=== PATIENT | female | born 1995 | race Caucasian/White ===

== ENCOUNTER 2017-01-29 11:07 | Emergency (ER) | payer OTHER ==
[2017-01-29 12:47] LABS: COLOR PALE YELLOW; LEUKOCYTE ESTERASE,URINE NEGATIVE (NEGATIVE); NITRITE,URINE NEGATIVE (NEGATIVE)
[2017-01-29 13:10] LABS: ALANINE AMINOTRANSFERASE 24 IU/L (9-52); ALBUMIN 4.6 g/dL (3.5-5.0); ALKALINE PHOSPHATASE 60 IU/L (38-126); ANION GAP 12 mEq/L (8-16); ASPARTATE AMINOTRANSFERASE 18 IU/L (14-46); BILIRUBIN,TOTAL 0.4 mg/dL (0.1-1.4); CALCIUM 10.3 mg/dL (8.5-10.4); CARBON DIOXIDE 21 mEq/l (22-31); CHLORIDE 110 mEq/L (97-110); CREATININE 0.7 mg/dL (0.6-1.0); GLOMERULAR FILTRATION RATE > 60; GLUCOSE 94 mg/dL (70-100); POTASSIUM 4.4 mEq/L (3.5-5.2); SODIUM 143 mEq/L (134-144); TOTAL PROTEIN 7.4 g/dL (6.3-8.2)
--- NOTE | 2017-01-29 13:14 | EDPHY ---
H & P Time Seen by Provider: 01/29/17 12:54 HPI/ROS: Chief complaint. Abdominal pain HPI. 21-year-old female 5 day history right lower quadrant abdominal pain. It began with nausea and chills. Then she developed right lower quadrant discomfort. It is sharp and worse with movement. Some radiation to her back. She has a history of ovarian cyst and has had a left oophorectomy because of ovarian cyst. She does not think that she has been running a fever though she has slight temperature here. No diarrhea. She did have some vomiting initially. She has had some constipation. She also notes urinary frequency. No chest discomfort or trouble breathing. ROS Constitutional. no fever/chills, no weakness Eyes. no problems with vision ENT. no sore throat, no nasal drainage Cardiovascular. no chest pain Respiratory. no shortness of breath, no cough Abdominal. Right lower quadrant abdominal pain with nausea and vomiting . Urinary frequency MS. no calf pain/swelling, no neck/back pain, no joint pain Skin. no rash Lymph. no swollen glands Neuro. no headache, no dizziness, no difficulty walking or with speech Past Medical/Surgical History: Past medical history significant for left oophorectomy, bipolar illness, attention deficit hyperactivity disorder, eating disorder, ovarian cysts Social History: Single, nonsmoker, no alcohol Smoking Status: Never smoked Physical Exam: General Appearance: Alert pleasant well-developed female mild distress vital signs show temp 37.3degrees with heart rate 101 an initial blood pressure 148/ 102 Eyes: Pupils equal and round no pallor or injection. ENT, Mouth: Mucous membranes are moist. Respiratory: There are no retractions, lungs are clear to auscultation. Cardiovascular: Regular rate and rhythm. Gastrointestinal: Abdomen is soft with tenderness in the right lower quadrant both the McBurney's point and in the right adnexal area. No masses. No organomegaly. Normal bowel sounds Neurological: Awake and alert, sensory and motor exams grossly normal. Skin: Warm and dry, no rashes. Musculoskeletal: Neck is supple nontender. Extremities symmetrical, full range of motion. Psychiatric: Patient is oriented X 3, there is no agitation. Constitutional: Initial Vital Signs Temperature (C) 37.3 C 01/29/17 11:15 Heart Rate 101 H 01/29/17 11:15 Respiratory Rate 20 01/29/17 11:15 Blood Pressure 148/102 H 01/29/17 11:15 O2 Sat (%) 98 01/29/17 11:15 O2 Delivery Mode Room Air Allergies/Adverse Reactions: simethicone [From Gas-X] Allergy (Intermediate, Verified 10/23/13 14:52) Hives Home Medications: Medication Instructions Recorded Escitalopram Oxalate [Lexapro 10 10 mg PO 10/03/12 MG (RX)] Fluticasone Hfa 220 Mcg [Flovent 1 puffs IH BID #1 mdi 10/03/12 220 MCG Hfa MDI (*)] [place] Aspartate [Lithate] 5 mg PO 10/03/12 Lurasidone HCl [Latuda 40MG (RX)] 40 mg PO DAILY@0800 10/03/12 Promethazine HCl [Phenergan 25mg 25 mg PO Q4-6PRN PRN #7 tab 01/29/17 (*)] Medical Decision Making - Diagnostics Imaging Results: Imaging Impressions Abdomen Ultrasound 01/29/17 13:28 Impression: 1. Normal-appearing uterus. 2. Follicle seen associated with normal-appearing right ovary with normal color- flow Doppler pattern. 3. The point of tenderness appeared to correspond with the right ovary during right lower quadrant ultrasound evaluation. 4. The appendix was not positively identified. Findings discussed with Jeremie Hartman M.D. at 15:59 hour, 01/29/2017. Pelvic/Renal Ultrasound 01/29/17 13:28 Impression: 1. Normal-appearing uterus. 2. Follicle seen associated with normal-appearing right ovary with normal color- flow Doppler pattern. 3. The point of tenderness appeared to correspond with the right ovary during right lower quadrant ultrasound evaluation. 4. The appendix was not positively identified. Findings discussed with Jeremie Hartman M.D. at 15:59 hour, 01/29/2017. Abdomen CT 01/29/17 16:04 Impression: 1. Mild prominence of the right ovary, as seen on ultrasound the same day, suboptimally assessed by CT. 2. Mild constipation. 3. Borderline hepatosplenomegaly. 4. Additional findings, as above. Findings discussed with Jeremie Hartman M.D., on January 29, 2017 at 1804. E:NW/amm Ultrasound reviewed by me and discussed with Dr. Rodriguez shows a normal up. Uterus. No obvious evidence for ovarian cyst or ovarian torsion. Unable to see a PACs CT abdomen and pelvis with IV contrast reviewed by me and discussed with Dr. King shows a normal appendix and constipation Procedures: IV normal saline. Fentanyl for pain. Zofran for ED Course/Re-evaluation: Re-evaluation 5:00 p.m.. The patient, mother, and I discussed imaging and lab results. We discussed treatment plan and that we could not see the appendix. I have recommended CT scan and they agree Patient has some nausea she will be given IV Phenergan I consulted and discussed case with Dr. Amber Marcum, gynecology who sees the patient in the emergency department. She feels that this is not ovarian torsion and the patient is safe for discharge The patient, her mom, and I discussed imaging and lab results. We discussed treatment plan including criteria for return importance of follow-up and further evaluation. They expressed understanding and agreement Differential Diagnosis: I considered urinary tract infection, ovarian cyst, ovarian torsion, appendicitis. Findings are consistent with constipation - Data Points Laboratory Results: Laboratory Results 01/29/17 12:48 01/29/17 12:48 01/29/17 01/29/17 01/29/17 13:15 12:48 12:48 WBC RBC Hgb Hct MCV MCH MCHC RDW Plt Count MPV Neut % (Auto) Lymph % (Auto) [place] % (Auto) Eos % (Auto) Baso % (Auto) Nucleat RBC Rel Count Absolute Neuts (auto) Absolute Lymphs (auto) Absolute Monos (auto) Absolute Eos (auto) Absolute Basos (auto) Absolute Nucleated RBC Immature Gran % Immature Gran # Sodium 143 mEq/L mEq/L (134-144) Potassium 4.4 mEq/L mEq/L (3.5-5.2) Chloride 110 mEq/L mEq/L (97-110) Carbon Dioxide 21 mEq/l L mEq/l (22-31) Anion Gap 12 mEq/L mEq/L (8-16) BUN 6 mg/dL L mg/dL (7-23) Creatinine 0.7 mg/dL mg/dL (0.6-1.0) Estimated GFR > 60 Glucose 94 mg/dL mg/dL (70-100) Calcium 10.3 mg/dL mg/dL (8.5-10.4) Total Bilirubin 0.4 mg/dL mg/dL (0.1-1.4) AST 18 IU/L IU/L (14-46) ALT 24 IU/L IU/L (9-52) Alkaline Phosphatase 60 IU/L IU/L (38-126) Total Protein 7.4 g/dL g/dL (6.3-8.2) Albumin 4.6 g/dL g/dL (3.5-5.0) Beta HCG, Qual NEGATIVE Urine Color Urine Appearance Urine pH Ur Specific [place] Urine Protein Urine Ketones Urine Blood Urine Nitrate Urine Bilirubin Urine Urobilinogen Ur Leukocyte Esterase Urine Glucose [place] 0.6 mEq/L mEq/L (0.6-1.2) 01/29/17 01/29/17 12:48 12:29 WBC 12.03 10^3/uL H 10^3/uL (3.80-9.50) RBC 4.98 10^6/uL 10^6/uL (4.18-5.33) Hgb 12.3 g/dL L g/dL (12.6-16.3) Hct 40.9 % % (38.0-47.0) MCV 82.1 fL fL (81.5-99.8) MCH 24.7 pg L pg (27.9-34.1) MCHC 30.1 g/dL L g/dL (32.4-36.7) RDW 14.5 % % (11.5-15.2) Plt Count 413 10^3/uL H 10^3/uL (150-400) MPV 10.3 fL fL (8.7-11.7) Neut % (Auto) 53.7 % % (39.3-74.2) Lymph % (Auto) 32.7 % % (15.0-45.0) [place] % (Auto) 3.8 % L % (4.5-13.0) Eos % (Auto) 8.7 % H % (0.6-7.6) Baso % (Auto) 0.7 % % (0.3-1.7) Nucleat RBC Rel Count 0.0 % % (0.0-0.2) Absolute Neuts (auto) 6.46 10^3/uL 10^3/uL (1.70-6.50) Absolute Lymphs (auto) 3.93 10^3/uL H 10^3/uL (1.00-3.00) Absolute Monos (auto) 0.46 10^3/uL 10^3/uL (0.30-0.80) Absolute Eos (auto) 1.05 10^3/uL H 10^3/uL (0.03-0.40) Absolute Basos (auto) 0.08 10^3/uL 10^3/uL (0.02-0.10) Absolute Nucleated RBC 0.00 10^3/uL 10^3/uL (0-0.01) Immature Gran % 0.4 % % (0.0-1.1) Immature Gran # 0.05 10^3/uL 10^3/uL (0.00-0.10) Sodium Potassium Chloride Carbon Dioxide Anion Gap BUN Creatinine Estimated GFR Glucose Calcium Total Bilirubin AST ALT Alkaline Phosphatase Total Protein Albumin Beta HCG, Qual Urine Color PALE YELLOW Urine Appearance CLEAR Urine pH 6.0 (5.0-7.5) Ur Specific [place] 1.004 (1.002-1.030) Urine Protein NEGATIVE (NEGATIVE) Urine Ketones NEGATIVE (NEGATIVE) Urine Blood NEGATIVE (NEGATIVE) Urine Nitrate NEGATIVE (NEGATIVE) Urine Bilirubin NEGATIVE (NEGATIVE) Urine Urobilinogen NEGATIVE EU EU (0.2-1.0) Ur Leukocyte Esterase NEGATIVE (NEGATIVE) Urine Glucose NEGATIVE (NEGATIVE) [place] Medications Given: Discontinued Medications Fentanyl (Sublimaze) 100 mcg IVP EDNOW ONE Stop: 01/29/17 13:29 Last Admin: 01/29/17 13:36 Dose: 100 mcg Fentanyl (Sublimaze) 100 mcg IVP EDNOW ONE Stop: 01/29/17 15:03 Last Admin: 01/29/17 15:08 Dose: 100 mcg Sodium Chloride (Ns) 1,000 mls @ 0 mls/hr IV EDNOW ONE; [place] PRN Reason: Protocol Stop: 01/29/17 13:29 Last Admin: 01/29/17 13:38 Dose: 1,000 mls Ondansetron HCl (Zofran) 4 mg IVP EDNOW ONE Stop: 01/29/17 13:29 Last Admin: 01/29/17 13:37 Dose: 4 mg Promethazine HCl (Phenergan) 12.5 mg IVP EDNOW ONE Stop: 01/29/17 16:11 Last Admin: 01/29/17 16:15 Dose: 12.5 mg Departure - Departure Disposition: Home, Routine, Self-Care Clinical Impression: Abdominal pain Qualifiers: Abdominal location: right lower quadrant Qualified Code(s): R10.31 - Right lower quadrant pain Condition: Good Instructions: Constipation (ED) Additional Instructions: Increased fluids including fruit juice and prune juice. Milk of magnesia, magnesium citrate, darryl Colace as laxatives from grocery store for constipation. Tylenol as needed for discomfort. Return for worsening pain, fever, vomiting. Recheck in 1-2 days if not improving Referrals: Amber Marcum DO [Doctor of Osteopathy] - As per Instructions Aggie Morel PA [Primary Care Provider] - 1 day, if not improved Prescriptions: Promethazine HCl [Phenergan 25mg (*)] 25 mg PO Q4-6PRN PRN #7 tab PRN Reason: Nausea/Vomiting, Use 1st
[2017-01-29 13:23] LABS: % IMMATURE GRANULYOCYTES 0.4 % (0.0-1.1); ABSOLUTE IMMATURE GRANULOCYTES 0.05 10^3/uL (0.00-0.10); ADD DIFF? NO; ADD MORPH? NO; ADD SCAN? NO; ATYPICAL LYMPHOCYTE FLAG 0 (0-99); FRAGMENT RBC FLAG 0 (0-99); HEMATOCRIT 40.9 % (38.0-47.0); HEMOGLOBIN 12.3 g/dL (12.6-16.3); LEFT SHIFT FLG 0 (0-99); LIPEMIA HEMOLYSIS FLAG 80 (0-99); MEAN CELL HEMOGLOBIN 24.7 pg (27.9-34.1); MEAN CELL HEMOGLOBIN CONCENTR. 30.1 g/dL (32.4-36.7); MEAN CELL VOLUME 82.1 fL (81.5-99.8); MEAN PLATELET VOLUME 10.3 fL (8.7-11.7); PLATELET CLUMPS FLAG 10 (0-99); PLATELET COUNT 413 10^3/uL (150-400); RED BLOOD CELL COUNT 4.98 10^6/uL (4.18-5.33); RED CELL DISTRIBUTION WIDTH 14.5 % (11.5-15.2)
[2017-01-29] MEDS ORDERED: NS 1,000 ML IV ONE (13:28)
[2017-01-29] MEDS ORDERED: ONDANSETRON 4 MG/2 ML VIAL IVP ONE (13:28)
[2017-01-29] MEDS ORDERED: fentaNYL 100 MCG/2 ML INJ IVP ONE ×2 (13:28→15:02)
[2017-01-29 13:43] VITALS: RESP 18
[2017-01-29 15:03] LABS: LITHIUM 0.6 mEq/L (0.6-1.2)
[2017-01-29] MEDS ORDERED: PROMETHAZINE HCL 25 MG/ML INJ IVP ONE (16:10)
[2017-01-29] MEDS ORDERED: IOPAMIDOL (ISOVUE-300) 100 ML BTL ONE (16:34)
[2017-01-29 18:05] VITALS: PULSE 100
[2017-01-29 19:23] VITALS: BP 133/90; TEMP 98.2; O2SAT 97
--- NOTE | 2017-01-30 05:25 | GCON ---
[f rep st] CONSULTATION DATE OF CONSULTATION: 01/29/2017 REASON FOR CONSULTATION: Right lower quadrant pain. HISTORY OF PRESENT ILLNESS: The patient is a 21-year-old 0, who has a 5-day history of nause a which increased with movement and right lower quadrant pain. The patient has presented to the [facility] for evaluation as the pain has persisted and it has been somewhat increasing and the patie nt has a history of a left adnexal mass which needed to be removed surgically, so the patient wanted to ensure that this was not the case on the right side. The patient has received 2 doses of IV fenta nyl in the 4 hours that she has been in the emergency room and is currently sitting up comfortably, a nd does not appear to be in any distress. The patient has a history of a left oophorectomy. The pat ient had an abdominal CAT scan which showed probable constipation and absent left ovary and a right o vary. She had a pelvic ultrasound which showed a uterus measuring 11.4 x 4.5 x 5.7 cm with an absent left ovary and a right ovary measuring 5.5 x 3.7 x 3.3 cm. No adnexal masses were seen. Normal col or-flow and Doppler waveforms were noted in the right ovary. An addendum from the radiologist states that due to the tenderness was part primarily over the right ovary, the possibility of a partial tor anabela of the right ovary or early torsion could be considered; however, there is good flow to the ovar y. The patient's pain has significantly improved after patient receiving pain medicine, and as previ ously stated currently appears to be comfortable. PAST MEDICAL HISTORY: Significant for obesity, bipolar disorder, ADHD, history of addictions to food and ADH medications, shopping, and overeating. History of irregular cycles. MEDICATIONS: [facility], Strattera, and Latuda. PAST SURGICAL HISTORY: Laparotomy for the left oophorectomy and dental surgery. ALLERGIES: Wellbutrin and Gas-X. Not an allergy, but the patient became suicidal on control p ills. SOCIAL HISTORY: The patient is in a relationship but not sexually active at this time. She denies t obacco, alcohol, or drug use. FAMILY MEDICAL HISTORY: Has a family history of multiple family members with diabetes and brain, omar g, skin cancer, and depression. [place] HISTORY: Menarche age 12. The patient's periods had been regular until a few years ago where she started occasionally skipping cycles. The patient is a 0. She has not had intercourse; however, she has had some sexual interactions with her boyfriend. She has tried control pills in the past to help prevent ovarian cysts which made her suicidal. She has never had a pelvic exam with exception of the ultrasound and pelvic exam for the history of the ovarian torsion when she was 17 years old. PHYSICAL EXAMINATION: VITAL SIGNS: Most recent blood pressure is 132/93. Her pulse is ranging betw een 100 and 120. Her respiratory rate is 18. Her temperature is 37.2. GENERAL APPEARANCE: She is alert and oriented x3, in no acute distress. PSYCH: She has appropriate affect. MUSCULOSKELETAL: Grossly intact. NEURO: Grossly intact. NECK: Mobile and supple. HEART: Rate is regular, regular . LUNGS: Are clear to auscultation bilaterally. ABDOMEN: Obese. No guarding. No rebound. No or ganomegaly is noted. EXTREMITIES: No calf tenderness or edema. PELVIC: The patient had a hard time tolerating 1 single finger inside her vagina and complained of significant pain even with touching he r introitus, so limited exam was performed, but no increased pain was noted on movement of the well s uspended cervix or on the right adnexa. IMAGING: A pelvic ultrasound was described above. LABORATORIES: The patient's white blood count is 12.3. Her hemoglobin is 12.3. Her hematocrit is 4 0.9. Her platelets are 413. Her CMP is essentially normal. Her urine is negative. ASSESSMENT AND PLAN: A 21-year-old 0, with a history of a left 8 cm adnexal mass that was re moved with a laparotomy from [facility] when she was 17 years old, who presents today for right lo wer quadrant pain x5 days. Ultrasound initially stated good flow and a normal-sized ovary, but then it was addended for possible early torsion, cannot rule out torsion. The patient appears to be very comfortable at this time. Her pelvic exam was benign with the exception of the intolerance of the di gital exam. The patient is not a candidate for oral contraceptives, as they have made her suicidal i n the past. I had a long discussion with the patient and her mother about the neck next step in stephenie gement options and pain management. The patient is comfortable at this time. She will follow up wit h her primary care doctor, and will give her contact information to follow up with us if she desires. Torsion precautions were reviewed, and the patient will follow up as needed. /[id number]/MODL
== END 2017-01-29 19:23 | disposition home or self-care (01) ==
DX: R10.31 Right lower quadrant pain (principal); E86.9 Volume depletion, unspecified
CPT/HCPCS: 96374; J2405; J2550; J3010; Q9967

== ENCOUNTER 2017-02-04 15:16 | Day surgery (SDC) | payer OTHER ==
[~2017-02-04 15:16] MED LIST: OXYCODONE/APAP 5/325 TAB PO SCH
--- NOTE | 2017-02-04 16:09 | EDPHY ---
H & P Time Seen by Provider: 02/04/17 15:55 HPI/ROS: Chief complaint. Abdominal pain HPI. 21-year-old female with 5 day history of nausea vomiting right-sided abdominal pain. She was seen in our emergency department on January 29 for the above symptoms. Symptoms have continued. The patient has pain to the right lower abdomen but basically the whole right side of her abdomen. Slight fever. Some pain with urination. She had an ultrasound which showed a large right ovary and there was concern for torsion. Registration Rep consultation felt that the ovary was normal. Her appendix was not visualized on ultrasound and CT scan shows a normal appendix. There was constipation present. She has had a bowel movement since her visit to the emergency department 5 days ago. She followed up with her PCP today for continuing pain and was referred back to the emergency department. No chest discomfort or trouble breathing. No upper respiratory symptoms ROS Constitutional. Fever Eyes. no problems with vision ENT. no sore throat, no nasal drainage Cardiovascular. no chest pain Respiratory. no shortness of breath, no cough Abdominal. Right-sided abdominal pain with nausea vomiting. No diarrhea. . Painful urination MS. no calf pain/swelling, no neck/back pain, no joint pain Skin. no rash Lymph. no swollen glands Neuro. no headache, no dizziness, no difficulty walking or with speech Past Medical/Surgical History: Past medical history bipolar illness, attention deficit hyperactivity disorder, eating disorder, left oophorectomy secondary to torsion. History ovarian cysts Social History: Single, nonsmoker, no alcohol Smoking Status: Never smoked Physical Exam: General Appearance: Alert well-developed female moderate distress vital signs significant for initial heart rate 128 Eyes: Pupils equal and round no pallor or injection. ENT, Mouth: Mucous membranes are moist. Respiratory: There are no retractions, lungs are clear to auscultation. Cardiovascular: Regular rate and rhythm. Gastrointestinal: Abdomen is soft but right-sided tenderness with some tenderness in the right upper quadrant but more tenderness in the right lower quadrant including McBurney's point and right adnexal area. No masses. Normal bowel sounds. No left-sided tenderness. Some right flank tenderness Neurological: Awake and alert, sensory and motor exams grossly normal. Skin: Warm and dry, no rashes. Musculoskeletal: Neck is supple nontender. Extremities symmetrical, full range of motion. Psychiatric: Patient is oriented X 3, there is no agitation. Constitutional: Initial Vital Signs Temperature (C) 37.2 C 02/04/17 15:21 Heart Rate 128 H 02/04/17 15:21 Respiratory Rate 18 02/04/17 15:21 Blood Pressure 129/94 H 02/04/17 15:21 O2 Sat (%) 96 02/04/17 15:21 O2 Delivery Mode Room Air Allergies/Adverse Reactions: simethicone [From Gas-X] Allergy (Intermediate, Verified 10/23/13 14:52) Hives bupropion [From Wellbutrin] Allergy (Verified 02/04/17 15:25) Home Medications: Medication Instructions Recorded [place] Aspartate [Lithate] 5 mg PO 10/03/12 Lurasidone HCl [Latuda 40MG (RX)] 40 mg PO DAILY@0800 10/03/12 Promethazine HCl [Phenergan 25mg 25 mg PO Q4-6PRN PRN #7 tab 01/29/17 (*)] Medical Decision Making - Diagnostics Imaging Results: Ultrasound of the pelvis is essentially unchanged. Shows are not enlarged right ovary with some but poor color flow. Appendix is not seen on ultrasound. CT abdomen shows a normal appendix. No evidence for gallbladder disease. Further concern for ovarian torsion Procedures: IV normal saline with initial target of 2 L of saline. Morphine for pain. Phenergan for nausea ED Course/Re-evaluation: I consulted and discussed case Dr. Amber Marcum, OBGYN, who sees the patient in the emergency department CT abdomen pelvis is ordered to rule out appendicitis as we cannot see the appendix on ultrasound Re-evaluation 7:40 p.m.. Patient is stable. The patient, her family, and I discussed imaging and lab results. We discussed treatment plan including recommendation for admission and surgery. They expressed understanding and agreement 7:45 p.m. I again discussed case with Dr. Marcum who will see the patient again and take the patient to surgery. Differential Diagnosis: Concern for ovarian torsion. However elevated white count and pain at McBurney' s point suggestive possible appendicitis. CT however reveals a normal appendix. We also considered acute cholecystitis. - Data Points Laboratory Results: Laboratory Results 02/04/17 17:35 02/04/17 17:35 02/04/17 02/04/17 02/04/17 17:35 17:35 17:35 WBC 18.19 10^3/uL H 10^3/uL (3.80-9.50) RBC 4.82 10^6/uL 10^6/uL (4.18-5.33) Hgb 12.1 g/dL L g/dL (12.6-16.3) Hct 39.0 % % (38.0-47.0) MCV 80.9 fL L fL (81.5-99.8) MCH 25.1 pg L pg (27.9-34.1) MCHC 31.0 g/dL L g/dL (32.4-36.7) RDW 14.6 % % (11.5-15.2) Plt Count 431 10^3/uL H 10^3/uL (150-400) MPV 10.0 fL fL (8.7-11.7) Neut % (Auto) 59.9 % % (39.3-74.2) Lymph % (Auto) 28.8 % % (15.0-45.0) [place] % (Auto) 4.3 % L % (4.5-13.0) Eos % (Auto) 5.8 % % (0.6-7.6) Baso % (Auto) 0.7 % % (0.3-1.7) Nucleat RBC Rel Count 0.0 % % (0.0-0.2) Absolute Neuts (auto) 10.90 10^3/uL H 10^3/uL (1.70-6.50) Absolute Lymphs (auto) 5.23 10^3/uL H 10^3/uL (1.00-3.00) Absolute Monos (auto) 0.79 10^3/uL 10^3/uL (0.30-0.80) Absolute Eos (auto) 1.06 10^3/uL H 10^3/uL (0.03-0.40) Absolute Basos (auto) 0.12 10^3/uL H 10^3/uL (0.02-0.10) Absolute Nucleated RBC 0.00 10^3/uL 10^3/uL (0-0.01) Immature Gran % 0.5 % % (0.0-1.1) Immature Gran # 0.09 10^3/uL 10^3/uL (0.00-0.10) Sodium 142 mEq/L mEq/L (134-144) Potassium 4.2 mEq/L mEq/L (3.3-5.0) Chloride 106 mEq/L mEq/L (97-110) Carbon Dioxide 22 mEq/l mEq/l (22-31) Anion Gap 14 mEq/L mEq/L (8-16) BUN 8 mg/dL mg/dL (7-23) Creatinine 0.7 mg/dL mg/dL (0.6-1.0) Estimated GFR > 60 Glucose 81 mg/dL mg/dL (70-100) Calcium 9.7 mg/dL mg/dL (8.5-10.4) Total Bilirubin 0.5 mg/dL mg/dL (0.1-1.4) Conjugated Bilirubin 0.5 mg/dL mg/dL (0.0-0.5) Unconjugated Bilirubin 0.0 mg/dL mg/dL (0.0-1.1) AST 32 IU/L IU/L (14-46) ALT 19 IU/L IU/L (9-52) Alkaline Phosphatase 62 IU/L IU/L (38-126) Total Protein 7.7 g/dL g/dL (6.3-8.2) Albumin 4.4 g/dL g/dL (3.5-5.0) Lipase 61 IU/L IU/L (23-300) Beta HCG, Qual NEGATIVE Medications Given: Discontinued Medications Sodium Chloride (Ns) 1,000 mls @ 0 mls/hr IV EDNOW ONE; [place] PRN Reason: Protocol Stop: 02/04/17 16:25 Last Admin: 02/04/17 17:38 Dose: 1,000 mls Sodium Chloride (Ns) 1,000 mls @ 0 mls/hr IV EDNOW ONE; [place] PRN Reason: Protocol Stop: 02/04/17 16:25 Last Admin: 02/04/17 18:36 Dose: 1,000 mls Morphine Sulfate (Morphine) 6 mg IVP EDNOW ONE Stop: 02/04/17 16:25 Last Admin: 02/04/17 17:39 Dose: 6 mg Promethazine HCl (Phenergan) 12.5 mg IVP EDNOW ONE Stop: 02/04/17 16:25 Last Admin: 02/04/17 17:38 Dose: 12.5 mg Departure - Departure Disposition: [facility] Inpatient Acute Clinical Impression: Torsion of right ovary and ovarian pedicle Condition: Fair Referrals: Aggie Morel PA [Primary Care Provider] - As per Instructions
[2017-02-04] MEDS ORDERED: NS 1,000 ML IV ONE ×2 (16:24)
[2017-02-04] MEDS ORDERED: PROMETHAZINE HCL 25 MG/ML INJ IVP ONE (16:24)
[2017-02-04 17:51] LABS: % IMMATURE GRANULYOCYTES 0.5 % (0.0-1.1); ABSOLUTE IMMATURE GRANULOCYTES 0.09 10^3/uL (0.00-0.10); ADD DIFF? NO; ADD MORPH? NO; ADD SCAN? NO; ATYPICAL LYMPHOCYTE FLAG 0 (0-99); FRAGMENT RBC FLAG 0 (0-99); HEMOGLOBIN 12.1 g/dL (12.6-16.3); LEFT SHIFT FLG 10 (0-99); LIPEMIA HEMOLYSIS FLAG 80 (0-99); MEAN CELL HEMOGLOBIN 25.1 pg (27.9-34.1); MEAN CELL VOLUME 80.9 fL (81.5-99.8); PLATELET CLUMPS FLAG 0 (0-99); PLATELET COUNT 431 10^3/uL (150-400); RED BLOOD CELL COUNT 4.82 10^6/uL (4.18-5.33); RED CELL DISTRIBUTION WIDTH 14.6 % (11.5-15.2)
[2017-02-04 18:29] LABS: ALANINE AMINOTRANSFERASE 19 IU/L (9-52); ALBUMIN 4.4 g/dL (3.5-5.0); ALKALINE PHOSPHATASE 62 IU/L (38-126); ANION GAP 14 mEq/L (8-16); ASPARTATE AMINOTRANSFERASE 32 IU/L (14-46); BILIRUBIN,TOTAL 0.5 mg/dL (0.1-1.4); BILIRUBIN-CONJUGATED 0.5 mg/dL (0.0-0.5); CALCIUM 9.7 mg/dL (8.5-10.4); CARBON DIOXIDE 22 mEq/l (22-31); CHLORIDE 106 mEq/L (97-110); CREATININE 0.7 mg/dL (0.6-1.0); GLOMERULAR FILTRATION RATE > 60; GLUCOSE 81 mg/dL (70-100); POTASSIUM 4.2 mEq/L (3.3-5.0); SODIUM 142 mEq/L (134-144); TOTAL PROTEIN 7.7 g/dL (6.3-8.2)
[2017-02-04] MEDS ORDERED: IOPAMIDOL (ISOVUE-300) 100 ML BTL ONE (18:35)
[2017-02-04] MEDS ORDERED: BUPIVACAINE 0.25% 30 ML SDV ONE (20:58)
[2017-02-04] MEDS ORDERED: SILVER NITRATE APPLICATOR 1 APPL TP ONE (20:59)
--- NOTE | 2017-02-04 21:20 | PDANEPAE ---
ANE Past Medical History - Pulmonary History Hx Oxygen in Use at Home: No - Endocrine History Hx Diabetes: No ANE Review of Systems Review of Systems: ANE Patient History - Allergies Allergies/Adverse Reactions: simethicone [From Gas-X] Allergy (Intermediate, Verified 10/23/13 14:52) Hives bupropion [From Wellbutrin] Allergy (Verified 02/04/17 20:16) Anaphylaxis ibuprofen Allergy (Verified 02/04/17 20:16) Other-Enter Comments - Home Medications Home Medications: Acetaminophen [Tylenol 325mg (*)] 650 mg PO Q6H PRN 02/04/17 [Last Taken Unknown ] Atomoxetine HCl [Strattera] 60 mg PO HS 02/04/17 [Last Taken 01/31/17] Herbals/Supplements -Info Only 1 ea PO DAILY 02/04/17 [Last Taken 02/04/17] [place] Carbonate ER [Lithobid 300 mg (*)] 1,200 mg PO HS 02/04/17 [Last Taken 02/03/17] Lurasidone HCl [Latuda] 120 mg PO HS 02/04/17 [Last Taken 02/03/17] diphenhydrAMINE [Benadryl 25 MG (*)] 25 mg PO HS PRN 02/04/17 [Last Taken Unknown] - NPO status NPO Since - Liquids (Date): 02/04/17 NPO Since - Liquids (Time): 11:00 NPO Since - Solids (Date): 02/04/17 NPO Since - Solids (Time): 11:00 - Smoking Hx Smoking Status: Never smoked ANE Labs/Vital Signs - Labs Result Diagrams: 02/04/17 17:35 02/04/17 17:35 - Vital Signs Blood Pressure: 103/55 Heart Rate: 106 Respiratory Rate: 16 O2 Sat (%): 93 Height: 167.64 cm Weight: 124.284 kg ANE Physical Exam - Airway Neck exam: decreased ROM Mallampati Score: Class 4 Mouth exam: small mouth opening - Pulmonary Pulmonary: no respiratory distress - Cardiovascular Cardiovascular: regular rate and rhythym - ASA Status ASA Status: III, E ANE Anesthesia Plan Anesthesia Plan: general endotracheal anesthesia
[2017-02-04] MEDS ORDERED: MIDAZOLAM 2 MG/2 ML VIAL ONE (21:23)
[2017-02-04] MEDS ORDERED: ROCURONIUM 100 MG/10 ML VIAL ONE (21:24)
[2017-02-04] MEDS ORDERED: PROPOFOL 200 MG/20 ML VIAL ONE (21:24)
[2017-02-04] MEDS ORDERED: METOCLOPRAMIDE 10 MG/2 ML VIAL ONE (21:24)
[2017-02-04] MEDS ORDERED: DEXAMETHASONE 4 MG/ML VIAL ONE ×2 (21:24)
--- NOTE | 2017-02-04 21:42 | GCON ---
[f rep st] CONSULTATION CONSULTATION AND PREOPERATIVE HISTORY AND PHYSICAL DATE OF CONSULTATION: 02/04/2017 ADMISSION DIAGNOSIS: Right lower quadrant pain. HISTORY OF PRESENT ILLNESS: Patient is a 21-year-old female who was initially seen in the emergency room on 01/29/2017, for a 5-day history of progressively worsening right lower quadrant pain. It beg an with nausea and chills. She has had right lower quadrant discomfort. It is sharp and worse with movement. There is some radiation to her back. She has a history of 20 cm ovarian cyst and has had a left oophorectomy because of the ovarian cyst. She had a previous vertical laparotomy for that pro cedure. Patient was initially evaluated on 01/29/2017, and was found to have her pain be manageable enough and ultimately was discharged to home. The ultrasound done at that time showed a slightly enl arged ovary with possible diminished flow. Patient apparently has had persistent discomfort since be ing discharged from the emergency room. She followed up with her primary care doctor today who instr ucted her to return to the emergency room for evaluation. The patient states the pain is in the righ t lower quadrant and the right upper quadrant and is constant. It feels better with sitting up. She denies any nausea, vomiting, fevers, or chills. The patient had a repeat ultrasound performed today in the emergency room, which showed a uterus measuring 10.3 x 4.3 x 5.3 cm with an endometrium measu ring 1.2 cm. Her right ovary is 5.8 x 3.5 x 4.5 cm and there appears to be a 3.5 x 3.3 x 3.0 cm hete rogeneous lesion, possibly a hemorrhagic cyst. There appears to be possible diminished flow to that ovary. She did have a CAT scan of her abdomen and pelvis, which showed that the ovary has slightly i ncreased in size from the previous imaging. Her appendix and gallbladder appear to be unremarkable. Patient is afebrile, but her white count is elevated at 18.19. On previous admission, her white cou nt was 12.3. The remainder of her labs remain unremarkable. We had a long discussion with the patie nt and her mom about management options including expectant management versus exploratory laparoscopy and possible oophorectomy if the ovary is torsed and necrotic. We had a long discussion about the f act that the patient has a history of a left oophorectomy and if we remove this right ovary she will become menopausal. Patient has previously been on control pills and was suicidal on those. We had a long discussion about the implications of menopause at such an early age. They are agreeable to proceed and we will try to conserve the ovary if at all possible. We also discussed possibly proc eeding with additional surgeries as indicated. Dr. Johns of general surgery will assist in the surgery due to the history of the previous vertical skin incision and to assess other right-sided pat hology. The patient's mom did ask about proceeding with a bilateral salpingectomy at this time william guillen the patient has a long history of mental health issues and her mother and the patient both desire for her to not ever be able to get . We discussed that this is unfortunate because even donta grayson we are doing surgery at this time, I have only known the patient for a week and she is young age, and deciding to proceed with an elective bilateral salpingectomy at time of an emergent surgery is no t appropriate as the patient has not been appropriately counseled and her high risk of regret due to her young age. PAST MEDICAL HISTORY: Morbid obesity, bipolar disorder, ADHD, history of addictions to food, on ADHD medications, shopping and overeating, history of regular cycles, probable polycystic ovarian syndrom e. MEDICATIONS: [place], Strattera, and Latuda. PAST SURGICAL HISTORY: Vertical laparotomy for left oophorectomy, and dental surgery. ALLERGIES: Wellbutrin and simethicone, which both cause rashes, and patient became suicidal on control pills. SOCIAL HISTORY: Patient is in a relationship but is not sexually active at this time. She denies to bacco, alcohol, or drug use. FAMILY MEDICAL HISTORY: Multiple family members with diabetes; brain, lung, skin cancer; and depress ion. PATIENT CARE COORDINATOR HISTORY: Menarche age 12. Periods were initially regular and then she began skipping cycles and now her periods are very irregular. Patient is a 0. She is virginal. She has tried bir th control pills in the past to help prevent ovarian cysts which made her suicidal. She has never connell d a pelvic exam with exception of an ultrasound and pelvic exam for the history of ovarian torsion wh en she was 17. PHYSICAL EXAM: VITAL SIGNS: Blood pressure is 103/55, her heart rate is 106, her respiratory rate i s 16, her O2 sat is 93%, and her temperature is 36.8. GENERAL APPEARANCE: Anxious but alert and gabby ented x3. PSYCH: She has appropriate affect. NECK: Mobile and supple. HEART: Rate is regular. LUNGS: Clear to auscultation bilaterally. ABDOMEN: Obese with a vertical laparotomy scar. It is no ndistended. She has right-sided tenderness. No left-sided tenderness. No guarding, no rebound. EX TREMITIES: Reveal no calf tenderness or edema. PELVIC: Deferred. IMAGING: Was described above. LABS: White blood count is 18. ASSESSMENT AND PLAN: 21-year-old 0 with history of left oophorectomy for a 20 cm cyst with a probable right-sided ovarian torsion. Will proceed with a diagnostic laparoscopy and possible right oophorectomy or a right ovarian cystectomy. Risks and benefits have been extensively reviewed with the patient and her mother, especially because of the history of the previous vertical incision, and patient has been properly consented. /[id number]/MODL
--- NOTE | 2017-02-04 22:42 | GCON ---
[f rep st] CONSULTATION DATE OF CONSULTATION: 02/04/2017 CHIEF COMPLAINT: Abdominal pain. HISTORY OF PRESENT ILLNESS: This is a 21-year-old female with a past medical history consistent with bipolar and chronic abdominal pain. At any rate, presents to the emergency department today with a 5-day history of nausea, vomiting, and right-sided abdominal pain which she states is in the right lo wer quadrant but does endorse pain on essentially the entire right side of her abdomen. Of note, the patient has been seen multiple times in our emergency department, the most recent of which was 6 day s ago on January 29 for essentially the same findings. At that point in time, she had a workup inc luding an ultrasound, which showed an ovarian cyst on the right side with possible concern for torsio n. She also had a CT scan, which showed that she had a normal appendix. At any rate, she stated arabella t she went home. She was feeling okay but did have persistent pain. She followed up with her primar care today and given the continuance of the pain she was referred back to the emergency department. In the emergency department, she states that the pain is persistent. It is better with IV narcotic s but it is worse with abdominal palpation and bimanual exam. Other than the pain, it sounds like sh e has no complaints. She denies having any fevers or chills. PAST MEDICAL HISTORY: Bipolar, attention deficit hyperactive disorder, eating disorder, history of a left oophorectomy and history of ovarian cysts. PAST SURGICAL HISTORY: Left oophorectomy secondary to torsion performed via lower midline incision. SOCIAL HISTORY: Is a student. Denies illicit drug use. Denies alcohol use. FAMILY HISTORY: Noncontributory. REVIEW OF SYSTEMS: A full 10-point review was performed and, unless explicitly stated above, is othe rwise negative. PHYSICAL EXAMINATION: VITAL SIGNS: Temperature 36.8, blood pressure 103/55, heart rate is 106. She is 93% on room air. CONSTITUTIONAL: She is in mild distress. She does appear uncomfortable. HEEN T: Eyes: Her pupils are equal, round, and reactive to light and accommodation. She has anicteric s clerae with normal extraocular movements. Ears, nose, mouth and throat: She has dry mucous membrane s. Her hearing is normal. Ears appear normal and she has no mucosal ulcers. CV: She has an irregu lar rate as she is tachycardic. I do not appreciate any murmurs. RESPIRATORY: She has no respirato ry distress, rales, or rhonchi. GI: She is morbidly obese. She has a well-healed vertical midline scar inferior to the umbilicus. She is tender to palpation in the right lower quadrant without rebou nd tenderness or guarding. SKIN: Warm, normal color without rashes. MUSCULOSKELETAL: She has full muscle strength. No tenderness and normal joint range of motion. NEUROLOGIC: She is alert and orie nted x3. Her cranial nerves 2 through 12 are intact. She has no weakness. No numbness, and no aste rixis. PSYCH: She is interacting appropriately. She appears somewhat anxious. She is not encephal opathic. She has normal thought process. LYMPH/HEME/IMMUNOLOGIC: She has no cervical, groin, or sup raclavicular lymphadenopathy. LABS: Significant for a leukocytosis to 18,000. H and H are stable at 12 and 39. Chemistries are u nremarkable. Her beta hCG is negative. IMAGING: Includes an abdominal ultrasound and abdominal CT scan, the images of which were personally reviewed by me. Her gallbladder and appendix are visualized on the CT scan and are normal. She has a decently sized right ovarian cyst and there is a question of whether or not there is arterial insu fficiency secondary to this. ASSESSMENT/PLAN: 21-year-old female with complex medical history, complaining of right lower quadran t pain and questionable right ovarian torsion. I have discussed the case with Amber Marcum the on-call BANK OFFICER who will be taking the patient to the operating room. I told the patient that I will be availab le to assist given the likelihood of scar tissue from previous midline laparotomy. I do not apprecia te any general surgical issues at this time but will be available to interrogate for those at that ti me, and will be able to assist in the operating room. I discussed my portion of the procedure with t zuleyka patient and her family. They understand and we will plan to proceed to the operating room as time permits. /[id number]/MODL
--- NOTE | 2017-02-04 23:04 | POSTOPPROG ---
Post Op Note Date of Operation: 02/04/17 Surgeon: Derrick Johns Gag Writer: Trixie Anesthesiologist: Paris Anesthesia: GET(General Endotracheal) Pre-op Diagnosis: Possible ovarian torsion Post-op Diagnosis: hemorrhagic ovarian cyst Indication: pain Procedure: exploratory laparoscopy, incidental appendectomy Findings: Ovary appeared viable, incidental appendectomy performed Inf/Abcess present in the surg proc area at time of surgery?: No EBL: Minimal Specimen(s): appendix
[2017-02-04] MEDS ORDERED: OXYCODONE/APAP 5/325 TAB PO PRN (23:21)
[2017-02-04] MEDS ORDERED: ACETAMINOPHEN 500 MG TAB PO PRN (23:28)
[2017-02-04] MEDS ORDERED: MEPERIDINE 25 MG/ML SYR IVP PRN (23:28)
[2017-02-04] MEDS ORDERED: ALBUTEROL 3 ML DEYVIAL IH PRN (23:28)
[2017-02-04] MEDS ORDERED: fentaNYL 100 MCG/2 ML INJ IVP PRN (23:28)
[2017-02-04] MEDS ORDERED: NALOXONE HCL 0.4 MG/ML INJ IVP PRN (23:28)
--- NOTE | 2017-02-04 23:28 | POSTANESTH ---
Post Anesthetic Evaluation Cardiovascular Status: Similar to Pre-Op Cond Respiratory Status: Similar to Pre-op Cond. Level of Consciousness/Mental Status: Mildly Sleepy, Arousable Pain Control: Adequate, Prn Tx Ordered Nausea/Vomiting Control: Adequate, Prn Tx Ordered Complications Possibly Related to Anesthesia: None Noted
[2017-02-04] MEDS ORDERED: fentaNYL 100 MCG/2 ML INJ ONE (23:48)
--- NOTE | 2017-02-05 00:27 | GOP ---
[f rep st] OPERATIVE REPORT DATE OF OPERATION: 02/04/2017 SURGEON: Derrick Johns MD RESTRICTIVE PREPARATION OPERATOR: Amber Marcum, ANESTHESIA: General endotracheal. ANESTHESIOLOGIST: Madi Toledo MD PREOPERATIVE DIAGNOSIS: Pelvic pain, possible ovarian torsion. POSTOPERATIVE DIAGNOSIS: Hemorrhagic ovarian cyst. PROCEDURE PERFORMED: Incidental appendectomy performed. FINDINGS: The ovary appeared largely viable. There was a hemorrhagic cyst. Please see Dr. Marcum's d ictation for this portion of the procedure. Her appendix appeared normal. I did elect to remove it as she has chronic abdominal pain and removing the appendix I feel would at least take this off the t able and allow us to focus on other types of pathology in the future. Gallbladder also appeared norm al as well as the colon and small bowel. SPECIMENS: Appendix. ESTIMATED BLOOD LOSS: 5 cc. INDICATIONS: This is a 21-year-old female who has multiple presentations and multiple past medical p roblems. Multiple presentations of right-sided abdominal pain to the emergency department here. Esme ging has shown that she does have a right ovarian cyst with question of ovarian torsion. I was asked by Dr. Marcum to accompany her to the operating room to inspect for any other concerning general surgi leah pathology and to assist with exposure. DESCRIPTION OF PROCEDURE: The patient and her family were greeted in the preoperative suite. Once a gain, risks, benefits, and alternatives were discussed. The consent was signed. She was then jaci t back to the operative suite, placed on the OR table in a supine position. After all anesthesia mac randhawa, including SCDs, were on and functioning, a World Health Organization time-out was performed. General endotracheal anesthesia was then induced without incident. The patient's abdomen was widely prepped and draped. After the patient was placed in a low lithotomy position, a uterine manipulator was successfully placed per Dr. Marcum. I entered the abdomen in the left upper quadrant using the Sonya ess needle and achieved a pneumoperitoneum to 15 mmHg CO2, which was well tolerated by the patient. Through this, I placed a 5 mm port. I then placed 3 additional ports, one 5 mm in the right lower, a n additional 5 mm in the left lower, and in the suprapubic area a [address] Marcum first commenc ed her portion of the procedure. Please see separate dictation for that portion. After she was satisfied that the ovary was not torsed and performed a cystectomy, I turned my attenti on toward the patient's right lower quadrant and identified the appendix by tracing the taeniae infer iorly. Once the appendix was identified, I created a window at the base and successfully amputated t he appendix from the cecal base. I then took the mesentery down with a LigaSure device. I placed it in an EndoCatch bag and removed it. The appendix was largely normal appearing. I saw no purulent f luid or any other significant pathology adjacent to it. My staple line was hemostatic and intact. I then inspected the remainder of her organs including her gallbladder as well as her small and large bowel, and found no other significant pathology. The abdomen was then irrigated out. We closed our suprapubic incision with an 0 Vicryl stitch using the Stefano-Conner fascial closure device. Pneumo peritoneum was evacuated. The ports were closed and sterile dressings were placed. The patient was then extubated in the operative suite and taken to the PACU in satisfactory condition. DRAINS: None. COUNTS: All counts were reported as correct x2. /[id number]/MODL
[2017-02-05 01:01] VITALS: BP 110/67; PULSE 68; RESP 18; TEMP 98.8; O2SAT 94
--- NOTE | 2017-02-05 06:13 | GOP ---
[f rep st] OPERATIVE REPORT DATE OF OPERATION: 02/04/2017 SURGEON: Amber Marcum DO ELECTROTYPER HELPER: Derrick Johns MD. ANESTHESIA: General endotracheal tube. ANESTHESIOLOGIST: Dr. Toledo. PREOPERATIVE DIAGNOSIS: Right lower quadrant pain with suspected ovarian torsion. POSTOPERATIVE DIAGNOSIS: Right hemorrhagic cyst. No ovarian torsion. PROCEDURE PERFORMED: Diagnostic laparoscopy with right ovarian cystectomy and appendectomy. FINDINGS: SPECIMENS: Appendix. ESTIMATED BLOOD LOSS: 50 cc. INDICATIONS: Patient is a 21-year-old 0, who came into the emergency room for the second damon e in a week complaining of persistent constant right lower quadrant pain. Her white count was elevat ed at 18 and when she was seen last week it was 12. Patient had an ultrasound performed last week, w hich showed a slightly enlarged ovary with a cyst and diminished flow to the ovary. She has a histor y of a previous ovarian torsion and a laparotomy to have a procedure done. She has had constant pain in the last week and returned to the emergency room for evaluation. An ultrasound was repeated and the ovary was slightly enlarged inside with a possible hemorrhagic cyst and diminished, but present f low to the ovary. Management options were reviewed with the patient. Because of the persistence of the pain, the elevated white count, and the family's request, we decided to proceed with a diagnostic laparoscopy. Dr. Johns, general surgery, agreed to scrub in, due to the history of the previou s vertical skin incision with the laparotomy, to evaluate the appendix and the gallbladder. DESCRIPTION OF PROCEDURE: Patient was taken to the operating room and placed on the operating room t able in dorsal supine position where general anesthesia was obtained. She was then repositioned into the dorsal lithotomy position with the Yellofin stirrups, then prepped and draped in normal sterile fashion. A Redd catheter was placed. Bimanual exam was performed, which was limited based on the p atient's body habitus. A speculum was then placed in the patient's vagina. An Allis clamp was used to grasp the anterior lip of the cervix and an acorn uterine manipulator was then inserted. Attention was then turned to the patient's abdomen, where a 5 mm skin incision was then made in the p atient's left upper quadrant. A Veress needle was then inserted and the abdomen was insufflated with CO2 gas until an adequate pneumoperitoneum was achieved. A 5 mm trocar was then advanced into the p atient's abdomen under direct visualization with the Optiview. The lower abdomen was explored. The uterus was elevated and appeared to be unremarkable. The left ovary was surgically absent from her p revious surgery, and the right ovary was benign appearing. There appeared to be a small hemorrhagic cyst in the posterior wall of the ovary. The ovary was slightly enlarged over normal size, but did n ot appear to be torsed. An additional port was placed in the patient's right lower quadrant. This w as done under direct visualization. A blunt probe was then inserted. The ovary was evaluated and th ere appeared to be 1 or 2 additional simple cysts on the ovary in addition to the hemorrhagic cyst. The appendix appeared to be long and somewhat adhesed to the retroperitoneum. A 10 mm skin incision was then made in the suprapubic area and a trocar was then advanced under direct visualization, and a 5 mm skin incision was then made in the patient's left lower quadrant, and a 5 mm trocar was then ad vanced to the patient's abdomen. Dr. Johns examined the appendix which overall appeared unremar kable, with the exception of some adhesions around it, so an appendectomy was performed. That portio n of the procedure will be dictated by him. The gallbladder was evaluated and found to be overall un remarkable. She did have some anterior abdominal wall scar tissue from her previous abdominal surger y, but no adhesions were noted. Attention was then turned to the patient's pelvis. The uterus was noted to be mobile. The left ovar y was surgically absent, and the right ovary had a hemorrhagic cyst. That cyst was lysed and hemosta sis was achieved. Using LigaSure monopolar hook, multiple other simple cysts around the ovary were p unctured and drained. The ovary seemed to be consistent with polycystic ovarian syndrome. The pelvi s was then irrigated and cleared of all clots. The ovary appeared to be hemostatic. The suture line of the appendectomy appeared to be hemostatic. No obvious causes for the leukocytosis were noted an d no other abnormalities were noted. The 10 mm trocar was then removed from the midline, and the fas cial closure device was used to close the fascia with an 0 Vicryl stitch. CO2 gas was then expressed from the patient's abdomen and the trocars were then removed. The skin was then closed with 4-0 Mon ocryl and Steri-Strips. The Allis clamp was removed from the cervix, as well as the acorn. A specul um exam was performed. The cervix was noted to be hemostatic. However, there was a tear in the hyme n, which was repaired with 2-0 Vicryl stitch in an interrupted [id number] fashion. Sponge, lap, and needle counts were correct x2. Patient was transported to recovery room in stable condition. SURGEON: Amber Marcum DO. /[id number]/MODL
== END 2017-02-05 00:52 | disposition home or self-care (01) ==
LOC: UNDOADMIN 19:54 → FSGY 21:00 → UNDODISIN 02-05 00:52
PROVIDERS: ATTEND Obstetrics & Gynecology
PROC: 0DTJ4ZZ Resection of Appendix, Percutaneous Endoscopic Approach (ICD-10-PCS; 2017-02-04)
PROC: 0UB04ZZ Excision of Right Ovary, Percutaneous Endoscopic Approach (ICD-10-PCS; principal; 2017-02-04 21:00)
DX: N83.291 Other ovarian cyst, right side (principal); R10.31 Right lower quadrant pain; Z90.721 Acquired absence of ovaries, unilateral
CPT/HCPCS: J1100; J2250; J2550; J2704; J2765; J3010; Q9967

== ENCOUNTER 2017-04-08 09:53 | Emergency (ER) | payer OTHER ==
[2017-04-08 09:58] VITALS: RESP 18
[2017-04-08 11:00] LABS: % IMMATURE GRANULYOCYTES 0.3 % (0.0-1.1); ABSOLUTE IMMATURE GRANULOCYTES 0.04 10^3/uL (0.00-0.10); ADD DIFF? NO; ADD MORPH? NO; ADD SCAN? NO; ATYPICAL LYMPHOCYTE FLAG 0 (0-99); FRAGMENT RBC FLAG 0 (0-99); HEMATOCRIT 39.1 % (38.0-47.0); HEMOGLOBIN 11.7 g/dL (12.6-16.3); LEFT SHIFT FLG 0 (0-99); LIPEMIA HEMOLYSIS FLAG 70 (0-99); MEAN CELL HEMOGLOBIN 23.5 pg (27.9-34.1); MEAN CELL HEMOGLOBIN CONCENTR. 29.9 g/dL (32.4-36.7); MEAN CELL VOLUME 78.5 fL (81.5-99.8); MEAN PLATELET VOLUME 9.8 fL (8.7-11.7); PLATELET CLUMPS FLAG 20 (0-99); PLATELET COUNT 364 10^3/uL (150-400); RED BLOOD CELL COUNT 4.98 10^6/uL (4.18-5.33); RED CELL DISTRIBUTION WIDTH 15.9 % (11.5-15.2)
--- NOTE | 2017-04-08 11:09 | EDPHY ---
H & P Time Seen by Provider: 04/08/17 10:28 HPI/ROS: CHIEF COMPLAINT: Abdominal pain HISTORY OF PRESENT ILLNESS: 21-year-old female presents to the emergency department with her mother with right lower quadrant abdominal pain. Patient has a complex past medical history including recent appendectomy, recent right ovarian cysts which required surgical intervention, however they were able to save the right ovary. Has a history of multiple ovarian cysts and ultimately had a left oophorectomy due to enlarged left ovarian cyst resulting in torsion. The patient states that this feels the same as when she had previous torsion. She has had no vaginal pain or spotting. She has pain in her left lower quadrant left flank area. No chest pain or difficulty breathing. No abdominal distention. She has been vomiting since earlier this morning. The pain started abruptly at 2 o'clock this morning and woke her up out of her sleep. Last menstrual period was 2-3 weeks ago and she denies . Denies dysuria, urgency or frequency with urination. REVIEW OF SYSTEMS: Constitutional: No fever, no chills. Eyes: No double or blurry vision. ENT: No sore throat. Respiratory: No cough, no shortness of breath. Cardiac: No chest pain. Gastrointestinal: Abdominal pain as above. No vomiting or diarrhea Genitourinary: No dysuria. Musculoskeletal: No neck or back pain. Skin: No rashes. Neurological: No headache. Past Medical/Surgical History: Bipolar, attention deficit hyperactivity disorder, eating disorder, seasonal allergies, left oophorectomy due to left ovarian torsion, history of ovarian cysts, recent appendectomy Social History: Single and lives in [place] Smoking Status: Never smoked Physical Exam: General Appearance: Alert, no distress. Afebrile. No apparent distress. Mother at bedside. Eyes: Pupils equal and round. Extraocular motions are all intact. ENT: Mouth: Mucous membranes moist. Respiratory: No wheezing, rhonchi, or rales, lungs are clear to auscultation. Cardiovascular: Regular rate and rhythm. Gastrointestinal: Abdomen is obese and soft. Tenderness with palpation in the right lower quadrant. There is no masses, rebound or guarding noted. No CVA tenderness bilaterally. Neurological: Alert and oriented x 3, cranial nerves II through XII grossly intact Skin: Warm and dry, no rashes. Musculoskeletal: Nontender to palpate along the cervical, thoracic or lumbar spine. Neck is supple. Extremities: Full range of motion and no peripheral edema. Psychiatric: Patient is oriented X 3, there is no agitation. Constitutional: Initial Vital Signs Temperature (C) 36.8 C 04/08/17 09:56 Heart Rate 110 H 04/08/17 09:56 Respiratory Rate 18 04/08/17 09:56 Blood Pressure 116/68 04/08/17 09:56 O2 Sat (%) 95 04/08/17 09:56 O2 Delivery Mode Room Air Allergies/Adverse Reactions: simethicone [From Gas-X] Allergy (Intermediate, Verified 04/08/17 09:58) Hives bupropion [From Wellbutrin] Allergy (Verified 04/08/17 09:58) Anaphylaxis ibuprofen Allergy (Verified 04/08/17 09:58) Other-Enter Comments morphine Allergy (Verified 04/08/17 09:58) Home Medications: Medication Instructions Recorded Acetaminophen [Tylenol 325mg (*)] 650 mg PO Q6H PRN 02/04/17 Atomoxetine HCl [Strattera] 60 mg PO HS 02/04/17 Herbals/Supplements -Info Only 1 ea PO DAILY 02/04/17 [place] Carbonate ER [Lithobid 300 1,200 mg PO HS 02/04/17 mg (*)] Lurasidone HCl [Latuda] 120 mg PO HS 02/04/17 diphenhydrAMINE [Benadryl 25 MG 25 mg PO HS PRN 02/04/17 (*)] oxyCODONE/APAP 5/325 [Percocet 1 tab PO Q4HRS PRN #10 tab 02/04/17 5/325 (*)] Medical Decision Making - Diagnostics Imaging Results: Imaging Impressions Pelvic/Renal Ultrasound 04/08/17 10:52 Impression: 1. Right ovarian complex cyst measuring 4.1 x 3.9 x 3.3 cm, previously measuring 3.5 x 3.3 x 3 cm. Follow up recommended in 6 to 12 weeks. 2. Doppler/duplex spectral flow to the right ovary without torsion. 3. Prior left oophorectomy. 4. No free fluid in the pelvis. Findings and recommendations discussed with Emergency Department physician development assistant, Antonella Lucas PA-C at 1154 hours on April 08, 2017. Final report concurs with initial preliminary interpretation. Imaging: Discussed imaging studies w/ call out operator Radiologist ED Course/Re-evaluation: 21-year-old female presents to the emergency department with right-sided abdominal pain that began abruptly at 2:00 a.m. this morning. The pelvic ultrasound reveals 4.1 cm x 3.9 cm x 3.3 cm right ovarian cyst which is complex. The right over has good flow. No evidence of torsion. I explained to the patient and mother at bedside the need for close follow-up with OBGYN and likely repeat pelvic ultrasound. Laboratory studies reveal slightly elevated white blood cell count. The the patient will talk with her psychiatrist about using ibuprofen which is not actually an allergy the patient but rather prolonged use causes elevation of her lithium levels. She has never been lithium toxic. I encouraged close follow-up with primary care provider as well as psychiatrist to discuss taking ibuprofen with her lithium. Differential Diagnosis: Including but not limited to ovarian cyst, ovarian torsion, urinary tract infection, pyelonephritis, acute appendicitis, postoperative infection - Data Points Laboratory Results: Laboratory Results 04/08/17 10:50 04/08/17 10:50 04/08/17 04/08/17 04/08/17 10:50 10:50 10:50 WBC 13.14 10^3/uL H 10^3/uL (3.80-9.50) RBC 4.98 10^6/uL 10^6/uL (4.18-5.33) Hgb 11.7 g/dL L g/dL (12.6-16.3) Hct 39.1 % % (38.0-47.0) MCV 78.5 fL L fL (81.5-99.8) MCH 23.5 pg L pg (27.9-34.1) MCHC 29.9 g/dL L g/dL (32.4-36.7) RDW 15.9 % H % (11.5-15.2) Plt Count 364 10^3/uL 10^3/uL (150-400) MPV 9.8 fL fL (8.7-11.7) Neut % (Auto) 78.4 % H % (39.3-74.2) Lymph % (Auto) 13.7 % L % (15.0-45.0) [place] % (Auto) 3.9 % L % (4.5-13.0) Eos % (Auto) 3.2 % % (0.6-7.6) Baso % (Auto) 0.5 % % (0.3-1.7) Nucleat RBC Rel Count 0.0 % % (0.0-0.2) Absolute Neuts (auto) 10.31 10^3/uL H 10^3/uL (1.70-6.50) Absolute Lymphs (auto) 1.80 10^3/uL 10^3/uL (1.00-3.00) Absolute Monos (auto) 0.51 10^3/uL 10^3/uL (0.30-0.80) Absolute Eos (auto) 0.42 10^3/uL H 10^3/uL (0.03-0.40) Absolute Basos (auto) 0.06 10^3/uL 10^3/uL (0.02-0.10) Absolute Nucleated RBC 0.00 10^3/uL 10^3/uL (0-0.01) Immature Gran % 0.3 % % (0.0-1.1) Immature Gran # 0.04 10^3/uL 10^3/uL (0.00-0.10) Sodium 145 mEq/L H mEq/L (134-144) Potassium 4.0 mEq/L mEq/L (3.5-5.2) Chloride 107 mEq/L mEq/L (97-110) Carbon Dioxide 21 mEq/l L mEq/l (22-31) Anion Gap 17 mEq/L H mEq/L (8-16) BUN 12 mg/dL mg/dL (7-23) Creatinine 0.8 mg/dL mg/dL (0.6-1.0) Estimated GFR > 60 Glucose 105 mg/dL H mg/dL (70-100) Calcium 11.0 mg/dL H mg/dL (8.5-10.4) Phosphorus 3.2 mg/dL mg/dL (2.5-4.5) Beta HCG, Qual NEGATIVE Medications Given: Discontinued Medications Sodium Chloride (Ns) 1,000 mls @ 0 mls/hr IV ONCE ONE PRN Reason: Wide Open Stop: 04/08/17 11:24 Last Admin: 04/08/17 11:52 Dose: 1,000 mls Ondansetron HCl (Zofran) 4 mg IVP EDNOW ONE Stop: 04/08/17 11:50 Last Admin: 04/08/17 11:52 Dose: 4 mg Departure - Departure Disposition: Home, Routine, Self-Care Clinical Impression: Ovarian cyst Qualifiers: Laterality: right Qualified Code(s): N83.201 - Unspecified ovarian cyst, right side Condition: Good Instructions: Ovarian Cyst (ED) Additional Instructions: Abdominal Pain: Return to the Emergency Department immediately for increasing pain, fever, vomiting, or if not completely better in 8-12 hours. Talk with your psychiatrist about using ibuprofen for your ovarian cyst. Return to the emergency department if her symptoms worsen at all. Follow up with Dr. Amber Marcum. Referrals: Amber Marcum, [Doctor of Osteopathy] - 1-2 days without fail Stand Alone Forms: Work Excuse
[2017-04-08 11:16] LABS: ANION GAP 17 mEq/L (8-16); CARBON DIOXIDE 21 mEq/l (22-31); CHLORIDE 107 mEq/L (97-110); CREATININE 0.8 mg/dL (0.6-1.0); GLOMERULAR FILTRATION RATE > 60; GLUCOSE 105 mg/dL (70-100); SODIUM 145 mEq/L (134-144)
[2017-04-08] MEDS ORDERED: NS 1,000 ML IV ONE (11:23)
[2017-04-08] MEDS ORDERED: ONDANSETRON 4 MG/2 ML VIAL IVP ONE (11:49)
[2017-04-08 11:53] VITALS: PULSE 90
[2017-04-08 12:45] VITALS: BP 112/80; TEMP 98.4; O2SAT 97
== END 2017-04-08 12:51 | disposition home or self-care (01) ==
DX: N83.201 Unspecified ovarian cyst, right side (principal)
CPT/HCPCS: 96374; J2405

== ENCOUNTER → 2017-05-23 | Outpatient (CLI) | payer OTHER | LOC: BRMIMAGING 10:57 | PROVIDERS: ATTEND Physician Assistant | DX: R16.0 Hepatomegaly, not elsewhere classified (principal); K76.0 Fatty (change of) liver, not elsewhere classified; E66.9 Obesity, unspecified | CPT/HCPCS: 76705-PO ==